=== PATIENT | female | born 1995 | race Caucasian/White ===

== ENCOUNTER 2016-06-20 10:16 | Emergency (ER) | payer OTHER ==
[2016-06-20 10:39] VITALS: BP 113/78; PULSE 112; TEMP 98.1; BMI 36.6
--- NOTE | 2016-06-20 12:52 | PDOC ---
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 Patient's daughter is sick with similar symptoms. Patient did not get influenza vaccine. Patient denies any shortness of breath or wheezing, nausea, vomiting or diarrhea. Patient is alert and interactive. She has had no recent travel. Timing/Duration: intermittent (for 2 days) Associated Symptoms: reports: fever/chills, other (nasal congestion with post nasal drip, productive cough yellowish ). denies: shortness of breath Past History - Past Medical History Allergies/Adverse Reactions: Allergies Allergy/AdvReac Type Severity Reaction Status Date / Time No Known Allergies Allergy Verified 06/20/16 10:36 Home Medications: Ambulatory Orders Clotrimazole/Betamethasone Dip [Clotrimazole-Betamethasone Lot] 30 ml TP BID #1 lotion 02/18/16 Azithromycin [Zithromax 250mg Tablets -] 250 mg PO UTDICT #6 tab 06/20/16 Oseltamivir Phosphate [Tamiflu -] 75 mg PO BID #10 capsule MDD 2 06/20/16 Asthma: No Cancer: No Cardiac Disorders: No Diabetes: No HTN: No Seizures: No Thyroid Disease: No Other medical history: DENIES. - Reproductive History (#): 1 Para: 0 Therapeutic (s) & number: Yes (1) - Immunization History Immunization Up to Date: No - Psycho/Social/Smoking Cessation Hx Anxiety: No Suicidal Ideation: No Smoking Status: No Smoking History: Never smoked Have you smoked in the past 12 months: No Number of Cigarettes Smoked Daily: 0 Hx Alcohol Use: No Drug/Substance Use Hx: Yes Substance Use Type: Marijuana Hx Substance Use Treatment: No Review of Systems - Review of Systems Able to Perform ROS?: Yes Constitutional: Yes: Chills, Fever (subjective ) HEENTM: Yes: Nose Congestion, Throat Pain (slight ) Respiratory: Yes: Productive cough (yellowish ). No: Cough, Orthopnea, Shortness of Breath, SOB with Exertion, SOB at Rest, Wheezing Cardiac (ROS): No: Symptoms Reported ABD/GI: No: Symptoms Reported : No: Symptoms Reported Musculoskeletal: No: Symptoms Reported Integumentary: No: Symptoms Reported Neurological: No: Symptoms reported *Physical Exam - Vital Signs Last Vital Signs Temp Pulse Resp BP Pulse Ox 98.1 F 112 H 19 113/78 96 06/20/16 10:37 06/20/16 10:37 06/20/16 10:37 06/20/16 10:37 06/20/16 10:37 - Physical Exam General Appearance: Yes: Appropriately Dressed HEENT: positive: TMs Normal, Pharyngeal Erythema, Tonsillar Erythema (with no uvular deviation ), Nasal Congestion. negative: Tonsillar Exudate Neck: negative: Lymphadenopathy (R), Lymphadenopathy (L) Respiratory/Chest: positive: Lungs Clear, Normal Breath Sounds. 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 Patient's daughter is sick with similar symptoms. Patient did not get influenza vaccine. Patient denies any shortness of breath or wheezing, nausea, vomiting or diarrhea. Patient is alert and interactive. She has had no recent travel. Reports that some people in her class have had strep throat recently. 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 throat will treat mother for with antibiotic Tamiflu 75 mg twice a day 5 days azithromycin 250 mg 2 tablets today then 1 tab daily for following 4 days 06/20/16 13:42 *DC/Admit/Observation/Transfer Diagnosis at time of Disposition: Influenza A, Tonsillitis - Discharge Dispostion Disposition: HOME Condition at time of disposition: Stable - Referrals Referrals: Geovanna Belle [Primary Care Provider] - - Patient Instructions Additional Instructions: Drink A lot a fluids and rest Take ibuprofen or acetaminophen as needed as directed by manufacturers service representative for fever or pain follow-up with your primary care provider within the next few days Return to emergency room if any difficulty breathing or swallowing Patient voiced understanding of discharge instructions and all questions were answered - Post Discharge Activity Work/School Note: Back to School
== END 2016-06-20 14:11 | disposition home or self-care (01) ==
LOC: JERFT 10:16
DX: J09.X2 Influenza due to identified novel influenza A virus with other respiratory manifestations (principal)
CPT/HCPCS: 87070; 87430; 87804; 99281-25

== ENCOUNTER 2018-08-13 09:34 | Emergency (ER) | payer OTHER ==
[2018-08-13 09:43] VITALS: BP 130/76; PULSE 77; TEMP 97.8; BMI 37.5
[2018-08-13 10:55] LABS: URINE APPEARANCE CLEAR; URINE BILIRUBIN NEGATIVE (NEGATIVE); URINE COLOR YELLOW; URINE GLUCOSE (UA) NEGATIVE (NEGATIVE); URINE KETONE NEGATIVE (NEGATIVE); URINE LEUK ESTERASE NEGATIVE (NEGATIVE); URINE NITRITE NEGATIVE (NEGATIVE); URINE PROTEIN NEGATIVE (NEGATIVE); URINE UROBILINOGEN 0.2 mg/dL (0.2-1.0)
--- NOTE | 2018-08-13 11:00 | PDOC ---
History of Present Illness - General Chief Complaint: Chest Pain Stated Complaint: CHEST PAIN Time Seen by Provider: 08/13/18 10:22 History Source: Patient Exam Limitations: Clinical Condition - History of Present Illness Initial Comments: 08/13/18 11:05 Patient with no significant past medical history present with complaint of 2 months history of intermittent chest pain, nausea and feeling of rapid heartbeat which she believes could be related to anxiety and has been persistent in the past week. Patient reports symptoms comes on when she is angry. Patient reported chest pain is localized to midsternal. Denies any chest pain now. Denies numbness or tingling sensation, denies shortness of breath or dizziness, sweats or vomiting. Denies any other symptoms Timing/Duration: other (2 months) Past History - Past Medical History Allergies/Adverse Reactions: Allergies Allergy/AdvReac Type Severity Reaction Status Date / Time No Known Allergies Allergy Verified 08/13/18 09:43 Home Medications: Ambulatory Orders Clotrimazole/Betamethasone Dip [Clotrimazole-Betamethasone Lot] 30 ml TP BID #1 lotion 02/18/16 Azithromycin [Zithromax 250mg Tablets -] 250 mg PO UTDICT #6 tab 06/20/16 Oseltamivir Phosphate [Tamiflu -] 75 mg PO BID #10 capsule MDD 2 06/20/16 Asthma: No Cancer: No Cardiac Disorders: No COPD: No Diabetes: No HTN: No Seizures: No Thyroid Disease: No - Reproductive History (#): 1 Para: 0 Therapeutic (s) & number: Yes (1) - Immunization History Immunization Up to Date: No - Suicide/Smoking/Psychosocial Hx Smoking Status: No Smoking History: Former smoker Have you smoked in the past 12 months: No Number of Cigarettes Smoked Daily: 0 Information on smoking cessation initiated: No Hx Alcohol Use: No Drug/Substance Use Hx: Yes Substance Use Type: Marijuana Hx Substance Use Treatment: No Review of Systems - Review of Systems Able to Perform ROS?: Yes Is the patient limited Turkish proficient: No Constitutional: No: Chills, Fever, Weakness HEENTM: No: Symptoms Reported, See HPI, Eye Pain, Blurred Vision, Tearing, Recent change in vision, Double Vision, Cataracts, Ear Pain, Ocular Prothesis, Ear Discharge, Nose Pain, Nose Congestion, Tinnitus, Nose Bleeding, Hearing Loss , Throat Pain, Throat Swelling, Mouth Pain, Dental Problems, Difficulty Swallowing, Mouth Swelling, Other Respiratory: No: Symptoms reported, See HPI, Cough, Orthopnea, Shortness of Breath, SOB with Exertion, SOB at Rest, Stridor, Wheezing, Productive cough, Hemoptysis, Other Cardiac (ROS): Yes: Symptoms Reported, See HPI, Chest Pain (intermittent), Palpitations (intermittent). No: Edema, Irregular Heart Rate, Lightheadedness, Syncope, Chest Tightness, Other ABD/GI: Yes: See HPI, Nausea (intermittent). No: Constipated, Diarrhea, Vomiting, Abdominal cramping Neurological: No: Headache, Numbness, Paresthesia, Seizure, Weakness, Unsteady Gait, Dizziness All Other Systems: Reviewed and Negative *Physical Exam - Vital Signs Last Vital Signs Temp Pulse Resp BP Pulse Ox 97.8 F 77 18 130/76 99 08/13/18 09:41 08/13/18 09:41 08/13/18 09:41 08/13/18 09:41 08/13/18 09:41 - Physical Exam Comments: 08/13/18 11:10 GENERAL: Well developed, well nourished. Awake and alert. No acute distress. HEENT: Normocephalic, atraumatic. PERRLA, EOMI. No conjunctival pallor. Sclera are non-icteric. Moist mucous membranes. Oropharynx is clear. NECK: Supple. Full ROM. CARDIOVASCULAR: Regular rate and rhythm. No murmurs, rubs, or gallops. Distal pulses are 2+ and symmetric. PULMONARY: No evidence of respiratory distress. Lungs clear to auscultation bilaterally. No wheezing, rales or rhonchi. ABDOMINAL: Soft. Non-tender. Non-distended. No rebound or guarding. No organomegaly. Normoactive bowel sounds. MUSCULOSKELETAL Normal range of motion at all joints. EXTREMITIES: No cyanosis. No clubbing. No edema. No calf tenderness. SKIN: Warm and dry. Normal capillary refill. No rashes. No jaundice. NEUROLOGICAL: Alert, awake, appropriate. Gait is normal without ataxia. PSYCHIATRIC: Cooperative. Good eye contact. Appropriate mood General Appearance: Yes: Nourished, Appropriately Dressed. No: Apparent Distress HEENT: positive: Normal ENT Inspection Neck: positive: Normal Thyroid, Supple Respiratory/Chest: positive: Lungs Clear, Normal Breath Sounds. negative: Chest Tender, Respiratory Distress, Accessory Muscle Use Cardiovascular: positive: Regular Rhythm, Regular Rate. negative: Murmur ED Treatment Course - LABORATORY CBC & Chemistry Diagram: 08/13/18 10:45 08/13/18 10:45 - RADIOLOGY Radiology Studies Ordered: Category Date Time Status CHEST PA & LAT [RAD] Stat Radiology 08/13/18 10:24 Ordered Medical Decision Making - Medical Decision Making 08/13/18 11:09 Patient with no significant past medical history present with complaint of 2 months history of intermittent chest pain, nausea and feeling of rapid heartbeat which she believes could be related to anxiety and has been persistent in the past week. Patient reports symptoms comes on when she is angry. Patient reported chest pain is localized to midsternal. Denies any chest pain now. Denies numbness or tingling sensation, denies shortness of breath or dizziness, sweats or vomiting. Denies any other symptoms. Clinical exam unremarkable with normal cardio in exam with normal neuro exam. EKG shows normal sinus rhythm. CBC, CMP and cardiac profile lab ordered. X-ray x -ray ordered to rule out acute chest pathology. Urine labs sent. Symptoms likely from anxiety versus less likely cardiogenic pain. Treat based on lab and imaging results. 08/13/18 11:42 CBC,CMP cardiac profile and urine lab unremarkable. CXR shows no acute pathology. Patient symptoms likely anxiety and stable for discharge with PCP follow-up. Patient asymptomatic now *DC/Admit/Observation/Transfer Diagnosis at time of Disposition: Anxiety, Chest pain due to psychological stress - Discharge Dispostion Disposition: HOME Condition at time of disposition: Stable Decision to Admit order: No - Referrals Referrals: Geovanna Belle [Primary Care Provider] - - Patient Instructions Printed Discharge Instructions: DI for Atypical Chest Pain, Anxiety and Panic Attacks (Alternative Therapy), DI for Anxiety -- Adult Additional Instructions: Your labs and chest x-rays was normal. Your symptom is likely from anxiety. Do breathing and relaxation exercise as discussed to reduce anxiety. Follow-up with PCP. Come back to ED if worsening chest pains - Post Discharge Activity
[2018-08-13 11:08] LABS: BASO % 0.8 % (0-2.0); HEMATOCRIT 41.4 % (32.4-45.2); HEMOGLOBIN 14.3 GM/dL (10.7-15.3); LYMPH % 38.4 % (8-40); MCH 30.3 pg (25.7-33.7); MCHC 34.6 g/dl (32.0-36.0); MEAN CELL VOLUME 87.4 fl (80-96); MEAN PLT VOLUME 9.5 fl (7.5-11.1); MONO % 8.1 % (3.8-10.2); NEUT % 49.7 % (42.8-82.8); PLATELET COUNT 254 K/MM3 (134-434); RBC 4.74 M/mm3 (3.60-5.2); RDW 12.6 % (11.6-15.6); WHITE BLOOD COUNT 8.1 K/mm3 (4.0-10.0)
[2018-08-13 11:21] LABS: ALBUMIN 3.4 g/dl (3.4-5.0); ALK PHOS 67 U/L (45-117); ANION GAP 6 MMOL/L (8-16); BILIRUBIN,TOTAL 0.1 mg/dL (0.2-1); BLOOD UREA NITROGEN 16 mg/dL (7-18); CALCIUM 8.9 mg/dL (8.5-10.1); CHLORIDE 106 mmol/L (98-107); CO2 26 mmol/L (21-32); CREATININE 0.6 mg/dL (0.55-1.3); GLUCOSE,RANDOM 94 mg/dL (74-106); POTASSIUM 4.3 mmol/L (3.5-5.1); SGOT/AST 18 U/L (15-37); SGPT/ALT 23 U/L (13-61); SODIUM 139 mmol/L (136-145); TOT PROT 6.8 g/dl (6.4-8.2)
[2018-08-13 11:25] LABS: HCG,QUALITATIVE URINE NEGATIVE
--- NOTE | 2018-08-13 17:56 | EKG ---
Test Reason : Blood Pressure : / mmHG Vent. Rate : 069 BPM Atrial Rate : 069 BPM P-R Int : 120 ms QRS Dur : 076 ms QT Int : 400 ms P-R-T Axes : 034 072 061 degrees QTc Int : 428 ms POOR DATA QUALITY, INTERPRETATION MAY BE ADVERSELY AFFECTED NORMAL SINUS RHYTHM NONSPECIFIC ST ABNORMALITY ABNORMAL ECG NO PREVIOUS ECGS AVAILABLE Confirmed by RACHEL UMANZOR MD ([id number]) on 08/13/2018 5:56:15 PM Referred By: Confirmed By:RACHEL UMANZOR MD
== END 2018-08-13 11:50 | disposition home or self-care (01) ==
LOC: JER 09:34
DX: R07.89 Other chest pain (principal); F41.9 Anxiety disorder, unspecified
CPT/HCPCS: 36415; 71046-TC-FY; 80053; 81003; 82550; 82553; 84484; 84703; 85025; 87086; 93005; 93010; 99282-25

== ENCOUNTER 2019-02-12 09:12 | Emergency (ER) | payer OTHER ==
[2019-02-12 09:24] VITALS: BP 111/50; PULSE 84; TEMP 98.1; BMI 35.6
[2019-02-12] MEDS ORDERED: CYCLOBENZAPRINE HCL 10 MG TABLET (FP) PO ONE (10:29)
[2019-02-12] MEDS ORDERED: IBUPROFEN 400 MG TABLET (FP) PO ONE ×2 (10:29→10:31)
[2019-02-12] MEDS ORDERED: CYCLOBENZAPRINE HCL 10 MG TABLET (FP) ONE (10:31)
--- NOTE | 2019-02-12 10:33 | PDOC ---
History of Present Illness - General Chief Complaint: Back Pain Stated Complaint: BACK PAIN Time Seen by Provider: 02/12/19 09:43 History Source: Patient - History of Present Illness Occurred: reports: other Severity: reports: moderate Pain Location: reports: back Past History - Past Medical History Allergies/Adverse Reactions: Allergies Allergy/AdvReac Type Severity Reaction Status Date / Time No Known Allergies Allergy Verified 02/12/19 09:21 Home Medications: Ambulatory Orders Clotrimazole/Betamethasone Dip [Clotrimazole-Betamethasone Lot] 30 ml TP BID #1 lotion 02/18/16 Azithromycin [Zithromax 250mg Tablets -] 250 mg PO UTDICT #6 tab 06/20/16 Oseltamivir Phosphate [Tamiflu -] 75 mg PO BID #10 capsule MDD 2 06/20/16 Cyclobenzaprine HCl [Flexeril 10 mg] 10 mg PO HS #9 tablet 02/12/19 Ibuprofen [Motrin -] 600 mg PO QID #28 tablet 02/12/19 Asthma: No Cancer: No Cardiac Disorders: No COPD: No Diabetes: No HTN: No Seizures: No Thyroid Disease: No - Reproductive History (#): 1 Para: 0 Therapeutic (s) & number: Yes (1) - Immunization History Immunization Up to Date: No - Psycho Social/Smoking Cessation Hx Smoking Status: No Smoking History: Never smoked Have you smoked in the past 12 months: No Number of Cigarettes Smoked Daily: 0 Information on smoking cessation initiated: No Hx Alcohol Use: No Drug/Substance Use Hx: No Substance Use Type: Marijuana Hx Substance Use Treatment: No Review of Systems - Review of Systems Constitutional: No: Chills, Fever Respiratory: No: Shortness of Breath Cardiac (ROS): No: Chest Pain, Palpitations Musculoskeletal: Yes: Back Pain Neurological: No: Headache, Numbness, Tingling, Weakness *Physical Exam - Vital Signs Last Vital Signs Temp Pulse Resp BP Pulse Ox 98.1 F 84 17 111/50 L 98 02/12/19 09:19 02/12/19 09:19 02/12/19 09:19 02/12/19 09:19 02/12/19 09:19 - Physical Exam General Appearance: Yes: Appropriately Dressed, Mild Distress HEENT: positive: Normal Voice Neck: positive: Supple Respiratory/Chest: positive: Lungs Clear, Normal Breath Sounds. negative: Respiratory Distress Cardiovascular: positive: Regular Rate, S1, S2 Musculoskeletal: positive: Normal Inspection, Vertebral Tenderness (over b/l shoulderblade). 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 Pain hurts with certain movements and to the touch. Has not taken anything for pain. No fall. see exam M/l MSK upper back pain No fall Dc w/ pain control PMD f/u as needed Discharge - Discharge Information Problems reviewed: Yes Clinical Impression/Diagnosis: Upper back pain Condition: Good Disposition: HOME - Additional Discharge Information Prescriptions: Cyclobenzaprine HCl [Flexeril 10 mg] 10 mg PO HS #9 tablet Ibuprofen [Motrin -] 600 mg PO QID #28 tablet - Follow up/Referral Referrals: Geovanna Belle [Primary Care Provider] - - Patient Discharge Instructions Patient Printed Discharge Instructions: Thoracic Back Pain Additional Instructions: Take medication as prescribed and if pain persists, please see your primary doctor - Post Discharge Activity Work/Back to School Note: Back to Work
== END 2019-02-12 10:37 | disposition home or self-care (01) ==
LOC: JERFT 09:12
DX: M54.6 Pain in thoracic spine (principal); M70.88 Other soft tissue disorders related to use, overuse and pressure other site; Y93.F9 Activity, other caregiving
CPT/HCPCS: 99281-25

== ENCOUNTER 2019-07-14 08:42 | Emergency (ER) | payer OTHER ==
[2019-07-14 08:56] VITALS: BP 107/66; PULSE 76; TEMP 98.7; BMI 35.7
--- NOTE | 2019-07-14 09:09 | PDOC ---
History of Present Illness - General Chief Complaint: Sore Throat Stated Complaint: SORE THROAT Time Seen by Provider: 07/14/19 08:57 History Source: Patient Exam Limitations: Clinical Condition - History of Present Illness Initial Comments: 07/14/19 09:05 Patient with no significant past medical history present with complaint of nasal congestion, runny nose and sore throat since yesterday. Patient reported she did not go to work yesterday and she was told by her job to get evaluation before she can return to work. Denies fever, chills, body aches, nausea, vomiting, diarrhea, abdominal pain. Denies any other symptoms. Patient did not take anything for symptoms Is this a multiple visit Asthma Patient?: No Timing/Duration: 24 hours Past History - Past Medical History Allergies/Adverse Reactions: Allergies Allergy/AdvReac Type Severity Reaction Status Date / Time No Known Allergies Allergy Verified 07/14/19 08:50 Home Medications: Ambulatory Orders Clotrimazole/Betamethasone Dip [Clotrimazole-Betamethasone Lot] 30 ml TP BID #1 lotion 02/18/16 Azithromycin [Zithromax 250mg Tablets -] 250 mg PO UTDICT #6 tab 06/20/16 Oseltamivir Phosphate [Tamiflu -] 75 mg PO BID #10 capsule MDD 2 06/20/16 Cyclobenzaprine HCl [Flexeril 10 mg] 10 mg PO HS #9 tablet 02/12/19 Cyclobenzaprine HCl [Flexeril 10 mg] 10 mg PO HS #9 tablet 02/12/19 Ibuprofen [Motrin -] 600 mg PO QID #28 tablet 02/12/19 Ibuprofen [Motrin -] 600 mg PO QID #28 tablet 02/12/19 Ipratropium [place] 2 spray NS BID PRN 5 Days #1 spray 07/14/19 Asthma: No Cancer: No Cardiac Disorders: No COPD: No Diabetes: No HTN: No Seizures: No Thyroid Disease: No - Reproductive History (#): 1 Para: 0 Therapeutic (s) & number: Yes (1) - Immunization History Immunization Up to Date: No - Psycho Social/Smoking Cessation Hx Smoking Status: No Smoking History: Never smoked Have you smoked in the past 12 months: No Number of Cigarettes Smoked Daily: 0 Hx Alcohol Use: No Drug/Substance Use Hx: No Substance Use Type: Marijuana Hx Substance Use Treatment: No Review of Systems - Review of Systems Able to Perform ROS?: Yes Is the patient limited Arabic proficient: No Constitutional: No: Chills, Fever, Malaise HEENTM: Yes: Symptoms Reported, See HPI, Nose Congestion, Throat Pain. No: Eye Pain, Blurred Vision, Tearing, Recent change in vision, Double Vision, Cataracts, Ear Pain, Ocular Prothesis, Ear Discharge, Nose Pain, Tinnitus, Nose Bleeding, Hearing Loss, Throat Swelling, Mouth Pain, Dental Problems, Difficulty Swallowing, Mouth Swelling, Other Respiratory: No: Symptoms reported, See HPI, Cough, Orthopnea, Shortness of Breath, SOB with Exertion, SOB at Rest, Stridor, Wheezing, Productive cough, Hemoptysis, Other Cardiac (ROS): No: Symptoms Reported, See HPI, Chest Pain, Edema, Irregular Heart Rate, Lightheadedness, Palpitations, Syncope, Chest Tightness, Other ABD/GI: No: Symptoms Reported, Nausea, Vomiting Musculoskeletal: No: Symptoms Reported Integumentary: No: Symptoms Reported, Rash All Other Systems: Reviewed and Negative *Physical Exam - Vital Signs Last Vital Signs Temp Pulse Resp BP Pulse Ox 98.7 F 76 18 107/66 97 07/14/19 08:50 07/14/19 08:50 07/14/19 08:50 07/14/19 08:50 07/14/19 08:50 - Physical Exam 07/14/19 09:07 GENERAL: Well developed, well nourished. Awake and alert. No acute distress. HEENT: Bilateral nasal congestion. Normocephalic, atraumatic. PERRLA, EOMI. No conjunctival pallor. Sclera are non-icteric. Moist mucous membranes. Oropharynx is clear. NECK: Supple. Full ROM. CARDIOVASCULAR: Regular rate and rhythm. No murmurs, rubs, or gallops. Distal pulses are 2+ and symmetric. PULMONARY: No evidence of respiratory distress. Lungs clear to auscultation bilaterally. No wheezing, rales or rhonchi. ABDOMINAL: Soft. Non-tender. Non-distended. No rebound or guarding. No organomegaly. Normoactive bowel sounds. MUSCULOSKELETAL Normal range of motion at all joints. SKIN: Warm and dry. Normal capillary refill. No rashes. No cyanosis. NEUROLOGICAL: Alert, awake, appropriate. Gait is normal without ataxia. PSYCHIATRIC: Cooperative. Good eye contact. Appropriate mood General Appearance: Yes: Nourished, Appropriately Dressed. No: Apparent Distress Medical Decision Making - Medical Decision Making 07/14/19 09:06 Patient with no significant past medical history present with complaint of nasal congestion, runny nose and sore throat since yesterday. Patient reported she did not go to work yesterday and she was told by her job to get evaluation before she can return to work. Denies fever, chills, body aches, nausea, vomiting, diarrhea, abdominal pain. Denies any other symptoms. Patient did not take anything for symptoms Exam significant for bilateral nasal congestion otherwise unremarkable exam. No pharyngeal erythema or exudate. Lungs clear to auscultation bilateral and normal cardio exam. Patient symptoms likely rhinitis with postnasal drip causing pharyngitis versus less likely strep. Rapid strep ordered to rule out strep pharyngitis 07/14/19 09:40 Rapid strep negative. Patient symptoms likely rhinitis and stable for discharge on Atrovent nasal spray as needed for nasal congestion with advised to increase fluid intake with PCP follow-up as needed Discharge - Discharge Information Problems reviewed: Yes Clinical Impression/Diagnosis: Pharyngitis Qualifiers: Pharyngitis/tonsillitis etiology: unspecified etiology Qualified Code(s): J02.9 - Acute pharyngitis, unspecified Rhinitis Qualifiers: Rhinitis type: acute Qualified Code(s): J00 - Acute nasopharyngitis [common cold] Condition: Stable Disposition: HOME - Admission No - Additional Discharge Information Prescriptions: Ipratropium [place] 2 spray NS BID PRN 5 Days #1 spray PRN Reason: nasal congestion - Follow up/Referral Referrals: Geovanna Belle [Primary Care Provider] - - Patient Discharge Instructions Patient Printed Discharge Instructions: Common Cold Additional Instructions: Strep test is negative. Your symptoms likely caused by nasal congestion and postnasal drip causing throat irritation. Use nasal spray prescribed as needed for nasal congestion. Increase fluid intake. Follow-up with primary care as needed - Post Discharge Activity Work/Back to School Note: Back to Work
== END 2019-07-14 09:38 | disposition home or self-care (01) ==
LOC: JER 08:42
DX: J02.9 Acute pharyngitis, unspecified (principal); J00 Acute nasopharyngitis [common cold]
CPT/HCPCS: 87070; 87880; 99282-25

== ENCOUNTER 2020-07-12 16:04 | Emergency (ER) | payer OTHER ==
[2020-07-12 16:19] VITALS: BP 111/73; PULSE 75; TEMP 98.3; BMI 33.3
[2020-07-12] MEDS ORDERED: DIPHTH,PERTUSS(ACELL),TET 0.5 ML DISP.SYRIN IM ONE ×2 (16:32→16:43)
== END 2020-07-12 16:48 | disposition home or self-care (01) ==
LOC: JER 16:04 → JERFT 16:04
PROC: 3E0234Z Introduction of Serum, Toxoid and Vaccine into Muscle, Percutaneous Approach (ICD-10-PCS; principal; 2020-07-12)
DX: S61.230A Puncture wound without foreign body of right index finger without damage to nail, initial encounter (principal)
CPT/HCPCS: 90715; 99284-25

== ENCOUNTER 2022-02-02 20:02 | Emergency (ER) | payer OTHER ==
[2022-02-02 20:21] VITALS: BP 116/57; PULSE 83; RESP 16; TEMP 98.3; BMI 36.8
[2022-02-02] MEDS ORDERED: ALBUTEROL SO4 2.5/IPRATROPIUM 0.5 INH SOL 3 ML VIAL.NEB. NEB ONE ×2 (22:23→22:27)
[2022-02-02] MEDS ORDERED: predniSONE 20 MG TABLET (UD) PO ONE (22:23)
[2022-02-02] MEDS ORDERED: predniSONE 20 MG TABLET (UD) ONE (22:24)
== END 2022-02-03 01:16 | disposition home or self-care (01) ==
LOC: JER 20:02
PROC: 3E0F7GC Introduction of Other Therapeutic Substance into Respiratory Tract, Via Natural or Artificial Opening (ICD-10-PCS; principal; 2022-02-02)
DX: J20.9 Acute bronchitis, unspecified (principal)
CPT/HCPCS: 0241U-QW; 71046-TC-FY; 99284-25